=== PATIENT | male | born 1980 | race Two or more races ===

== ENCOUNTER 2022-03-07 20:45 | Emergency (ER) | payer MEDICAID ==
[~2022-03-07] VITALS: Ht 154.9 cm; Wt 61.2 kg
--- NOTE | 2022-03-07 20:55 | NUR ---
BIBRA FROM HOME C/O CHEST PAIN AND PALPITATIONS X 2HRS. PT A/OX4. TOLERATING R/A WELL WITH NO RESP DISTRESS. CONNECTED PT TO POX AND MONITOR. SAFETY MEASURES IN PLACE.
--- NOTE | 2022-03-07 21:29 | NUR ---
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
[2022-03-07] MEDS ORDERED: diphenhydrAMINE HCL 50 MG/ML VIAL ONE (21:31)
[2022-03-07] MEDS ORDERED: KETOROLAC TROMETHAMINE 15 MG/ML VIAL ONE (21:31)
[2022-03-07] MEDS ORDERED: METOCLOPRAMIDE HCL 10 MG/2 ML VIAL ONE (21:32)
[2022-03-07 21:45] LABS: BASOPHILS % (AUTO) 0.3 % (0.0-2.0); EOSINOPHILS % (AUTO) 0.8 % (0.0-6.0); HEMATOCRIT 45 % (39-51); HEMOGLOBIN 15.4 g/dL (13.5-17.5); LYMPHOCYTES # (AUTO) 1.8 K/uL (0.8-4.8); LYMPHOCYTES % (AUTO) 17.8 % (20.0-44.0); MEAN CORPUSCULAR HGB CONC 34 g/dl (31.0-36.0); MEAN CORPUSCULAR VOLUME 85 fL (80-96); MONOCYTES # (AUTO) 0.5 K/uL (0.1-1.30); NEUTROPHILS # (AUTO) 7.5 K/uL (1.8-8.9); NEUTROPHILS % (AUTO) 76.1 % (43.0-81.0); PLATELET COUNT (AUTO) 233 K/uL (150-450); RED BLOOD CELL COUNT(AUTO) 5.33 MIL/uL (4.5-6.0); WHITE BLOOD COUNT (AUTO) 9.8 K/uL (4.3-11.0)
[2022-03-07] MEDS: IV NS 0.9% 500 ML BAG IV ONE (21:45)
[2022-03-07] MEDS: KETOROLAC TROMETHAMINE INJ 30 MG/ML VIAL IV ONE (21:45)
[2022-03-07] MEDS: METOCLOPRAMIDE HCL 10 MG/2 ML VIAL IV ONE (21:45)
[2022-03-07] MEDS: diphenhydrAMINE HCL 50 MG/ML VIAL IV ONE (21:45)
--- NOTE | 2022-03-07 21:47 | NUR ---
DR. CARLOS JOHNSON AT PT'S BEDSIDE FOR EVAL
--- NOTE | 2022-03-07 21:47 | NUR ---
IV ESTABLISHED RAC #18G S/L
--- NOTE | 2022-03-07 21:48 | NUR ---
RCIS AT PT'S BEDSIDE
[2022-03-07 21:56] LABS: CARBON DIOXIDE 29 mmol/L (21-32); CHLORIDE 103 mmol/L (98-107); CREATININE 0.9 mg/dL (0.6-1.3); GLUCOSE 108 mg/dL (74-106); POTASSIUM 3.3 mmol/L (3.5-5.1); SODIUM SERUM 138 mmol/L (136-145); UREA NITROGEN, BLOOD 9 mg/dL (7-18)
[2022-03-07 22:01] LABS: ALANINE AMINOTRANSFERASE 38 U/L (12-78); ALKALINE PHOSPHATASE 59 U/L (46-116); ASPARTATE AMINOTRANSFERASE 30 U/L (15-37); BILIRUBIN,DIRECT 0.1 mg/dL (0.0-0.2); BILIRUBIN,TOTAL 0.4 mg/dL (0.2-1.0); TOTAL PROTEIN, SERUM 7.6 g/dL (6.4-8.2)
[2022-03-07] MEDS ORDERED: ACET-73 PO (22:48)
[2022-03-07 23:21] VITALS: BP 110/59
--- NOTE | 2022-03-07 23:21 | NUR ---
Patient discharged to home in stable condition. Written and verbal after care instructions given. Patient verbalizes understanding of instruction. IV removed. Catheter intact and site benign. Pressure and 4x4 applied to site. No bleeding noted.
== END 2022-03-07 23:21 | disposition home or self-care (01) ==
LOC: ER 20:48
DX: R51.9 Headache, unspecified (principal); R00.2 Palpitations; R42 Dizziness and giddiness; Z79.1 Long term (current) use of non-steroidal anti-inflammatories (NSAID)
CPT/HCPCS: 99285; 96374; 71045; 96375; 93005 ×3; 85025; 80048; 80076; 36415; 84484; 85730; J1200; J2765; J7030; J1885